=== PATIENT | male | born 1980 | race African-American/Black ===

== ENCOUNTER 2018-10-27 20:04 | Emergency (ER) | payer OTHER ==
[~2018-10-27] VITALS: Ht 182.9 cm; Wt 109.1 kg
[2018-10-27 21:13] VITALS: BP 155/96
[2018-10-27] MEDS ORDERED: ChlordiazePOXIDE HCL 25 MG CAPSULE PO ONE (22:00)
== END 2018-10-27 22:12 | disposition home or self-care (01) ==
LOC: EMS 20:05
DX: F10.239 Alcohol dependence with withdrawal, unspecified (principal); F41.9 Anxiety disorder, unspecified